=== PATIENT | male | born 1995 | race Hispanic/Latino ===

== ENCOUNTER 2023-04-10 16:38 | Emergency (ER) | payer SELFPAY ==
[2023-04-10] MEDS ORDERED: Tetracaine 0.5% PF 4 ML BOT ONE (17:24)
[2023-04-10] MEDS ORDERED: Fluorescein Opthalmic Strip ONE (17:25)
== END 2023-04-10 18:20 | disposition home or self-care (01) ==
LOC: CSHERS 16:38
DX: T15.02XA Foreign body in cornea, left eye, initial encounter (principal)
CPT/HCPCS: 99283